=== PATIENT | female | born 1965 | race Caucasian/White ===

== ENCOUNTER 2017-06-19 18:28 | Emergency (ER) | payer OTHER, SELFPAY ==
[~2017-06-19 18:28] MED LIST: Dextrose 50% Abboject 50 ML SYRINGE ONE
[2017-06-19 18:47] LABS: Hemoglobin 12.2 g/dL (12.0-16.0); Mean Corpuscular HGB CONC 30.5 g/dL (32.0-36.0); Mean Corpuscular Hemoglobin 28.4 pg (27.0-31.0); Mean Corpuscular Volume 93.2 fl (81.0-99.0); Mean Platelet Volume 7.5 fL (7.4-10.4); Platelet Count 126 thou/uL (130-400); RBC Distribution Width 12.4 % (11.5-14.5); Red Blood Cell (RBC) Count 4.28 mill/uL (4.20-5.40); White Blood Cell (WBC) Count 8.5 thou/uL (4.8-10.8)
[2017-06-19] MEDS ORDERED: Insulin Regular 300 UNITS/3 ML VIAL ONE (18:50)
--- NOTE | 2017-06-19 18:51 | RAD ---
SUPINE PORTABLE CHEST ONE VIEW: HISTORY: A 51-year-old female with CPR in progress. FINDINGS: An endotracheal tube is in place, extending down to approximately the T2 level. It is well above the level of the shelly and could be advanced several centimeters for more optimal positioning. There i s extensive artifact overlying the chest, considerably obscuring it. There appears to be extensive b ilateral alveolar parenchymal changes throughout both lungs, probably related to bilateral alveolar e yue. The heart size is within normal limits. IMPRESSION: Endotracheal tube at approximately the T2 level. Normal appearing heart. Extensive bilateral alveol ar parenchymal changes, evidence for extensive bilateral alveolar pulmonary edema versus extensive bi lateral pneumonia. POS: [facility]
[2017-06-19 18:57] LABS: ALT (SGPT) 868 U/L (8-55); AST (SGOT) 858 U/L (5-34); Albumin 2.8 g/dL (3.5-5.0); Alkaline Phosphatase 96 U/L (40-150); Anion Gap 38 mmol/L (10-20); BUN (Urea Nitrogen) 17 mg/dL (9.8-20.1); Bilirubin, Total 0.3 mg/dL (0.2-1.2); Calc. Creatinine Clearance 0 mL/min (70-130); Calcium 9.7 mg/dL (7.8-10.44); Carbon Dioxide 16 mmol/L (22-29); Chloride 109 mmol/L (98-107); Estimated GFR-MDRD 48; Glucose 119 mg/dL (70-105); Protein, Total 4.8 g/dL (6.0-8.3); Sodium 156 mmol/L (136-145)
[2017-06-19 18:58] LABS: Potassium 6.7 mmol/L (3.5-5.1); Troponin I 0.227 ng/mL (< 0.028)
[2017-06-19 19:00] LABS: CKMB 7.4 ng/mL (0-6.6)
== END 2017-06-19 21:30 | disposition expired ==
LOC: NAV ERS 18:28
DX: I46.9 Cardiac arrest, cause unspecified (principal); J81.1 Chronic pulmonary edema
CPT/HCPCS: 36415; 71045; 80053; 82553; 84484; 85025; 92950; J1815